=== PATIENT | female | born 1980 | race Caucasian/White ===

== ENCOUNTER 2024-11-30 10:56 | Emergency (ER) | payer OTHER ==
[~2024-11-30] VITALS: Ht 165.1 cm; Wt 69.0 kg
[2024-11-30 10:59] VITALS: TEMP 36.6; O2SAT 100
[2024-11-30] MEDS: MORPHINE SULFATE 4 MG/ML INJ (FOR IV/IM USE) IM ONE (13:25)
[2024-11-30 13:26] VITALS: BP 139/75; PULSE 104; RESP 20
[2024-11-30] MEDS: KETOROLAC 30MG/ML VIAL IM ONE (13:26)
[2024-11-30] MEDS ORDERED: IBUP-2029 MT (13:35)
[2024-11-30] MEDS ORDERED: HYDR-4001 MT (13:35)
== END 2024-11-30 14:52 | disposition home or self-care (01) ==
LOC: ER 10:56
DX: S82.002A Unspecified fracture of left patella, initial encounter for closed fracture (principal); W19.XXXA Unspecified fall, initial encounter; Y93.89 Activity, other specified; Y92.89 Other specified places as the place of occurrence of the external cause; Y99.8 Other external cause status
CPT/HCPCS: 73560; 29505; 96372; 99284; J1885; J2270; Z7610 ×2